=== PATIENT | female | born 1950 | race Caucasian/White ===

== ENCOUNTER 2016-06-09 09:30 | Emergency (ER) | payer MEDICARE ==
[~2016-06-09] VITALS: Ht 172.7 cm; Wt 147.4 kg
[~2016-06-09 09:30] MED LIST: ACIDOPHILUS100 MG PO; AMIO100T4 PO; ASCO-296 PO; ASPI-808 PO; ATOR40TA PO; BUSP7.5T5 PO; CALC667C10 PO; CARV12.53 PO; CEPH500C PO; DICY20TA33 PO; DILT120T3 PO; DULO60CA6 PO; FRS325T PO; HYDR-3062 PO; HYDR-3816 PO; INSASP10V SC; INSU100C4 SQ; INSU100V5 SQ; LEVO50TA6 PO; LISI-594 PO; OMEP20CA6 PO; ONDA8TAB9 PO; OXYC-272 PO; PNT40TEC PO; SENSIPAR PO; TORS100T4 PO; TR1C15 TOP; VIT1TABL59 PO; [UNRECOGNIZED DRUG - CODE] INJ
--- OUTSIDE RECORDS SUMMARY | 2016-06-09 09:34 | XMS REPORT | Continuity of Care Document ---
Author Author [facility] Organization [facility] Address Unknown Phone Unavailable Care Team Providers Care Cephalometric Technician Name Role Phone NO, LOCAL PHYSICIAN PCP Unavailable Insurance Providers Payer Name Policy Number Subscriber Name Relationship [employer] [id number] MelberJasvir 18 Self / Same As Patient [employer] Supp [id number] MelberJasvir 18 Self / Same As Patient Advance Directives Directive Response Recorded Date/Time Advance Directives No 10/22/14 7:11pm Problems Medical Problems Problem Onset Date Status Epistaxis Unknown Active Epistaxis Unknown Active Epistaxis Unknown Active Medications Medication Dose Route Sig Days/Qty Instructions Order Date Discontinued Date Status Ascorbic Acid 500 Mg PO THREE TIMES A DAY 08/16/13 Active Amiodarone HCl 200 Mg PO DAILY 08/16/13 Active Carvedilol (Coreg) 12.5 Mg PO TWICE A DAY 08/16/13 Active Lactobacillus Acidophilus 200 Mg PO THREE TIMES A DAY 08/16/13 Active Triamcinolone Acetonide (Kenalog 0.1% Cream) 0 TOP DAILY APPLY SPRARINGLY TO AFFECTED AREA(S) 08/16/13 Active Duloxetine HCl 60 Mg PO DAILY 08/16/13 Active Ferrous Sulfate 325 Mg PO THREE TIMES A DAY 08/16/13 Active Insulin Glargine,Hum.rec.anlog 15 Unit SQ BEDTIME 08/16/13 Active Insulin Aspart 0 SC BEFORE MEALS 08/16/13 Active Oxycodone Hcl/Acetaminophen 1 Tab PO EVERY 6 HOURS PRN PAIN 08/16/13 Active Pantoprazole Sodium 40 Mg PO DAILY 30 Qty 08/16/13 Active [Sensipar] 30 Mg PO DAILY 08/16/13 Active Lisinopril 5 Mg PO DAILY 08/16/13 Active Ondansetron HCl 8 Mg PO EVERY 8HRS PRN NAUSEA/VOMITING 08/16/13 Active Darbepoetin Mono 100 Mcg INJ WEEKLY 08/16/13 Active Insulin Detemir 10 U SQ DAILY 08/16/13 Active Hydrocodone Bit/Acetaminophen 1 Tab PO EVERY 6 HOURS PRN PAIN 14 Qty Active Social History Social History Problem Response Recorded Date/Time Alcohol Use Denies Use 10/22/2014 7:11pm Recreational Drug Use No 10/22/2014 7:11pm Recent Foreign Travel No 10/23/2014 11:01am Hospital Discharge Instructions No hospital discharge instructions. Plan of Care No plan of care. Functional Status No functional status results. Allergies, Adverse Reactions, Alerts Allergen Type Severity Reaction Status Last Updated No Known Drug Allergies Active 08/16/13 Immunizations Name Given Type Date of Pneumonia Vaccine 06/01/08 Historical Date of Influenza Vaccine 05/01/13 Historical Vital Signs Acute Vital Signs Vital Response Date/Time Temperature (Fahrenheit) 98.8 degrees F (97.6 - 99.5) Temperature (Calculated Celsius) 37.70131 degrees C (36.4 - 37.5) Temperature Source Temporal Pulse Rate (adult) 58 bpm (60 - 90) Respiratory Rate 46 bpm (12 - 24) O2 Sat by Pulse Oximetry 97 % (88 - 100) Blood Pressure 113/67 mm Hg Pain Pain Intensity 0 Height (Feet) 5 feet Height (Inches) 7 inches Height (Calculated Centimeters) 170.790844 cm Weight (Pounds) 250 pounds Weight (Calculated Kilograms) 113.731179 kilograms Calculated BMI 39.15 Results Laboratory Results Test Name Result Units Flags Reference Collection Date/Time Result Date/ Time Comments White Blood Count 8.7 10^3/uL 4.3-11.0 10/06/2014 10:24am 10/06/2014 10 :33am Red Blood Count 3.01 10^6/uL L 4.35-5.85 10/06/2014 10:10/06/2014 10 :33am Hemoglobin 9.4 G/DL L 11.5-16.0 10/06/2014 10:10/06/2014 10:33am Hematocrit 30 % L 35-52 10/06/2014 10:10/06/2014 10:33am Mean Corpuscular Volume 98 FL 80-99 10/06/2014 10:10/06/2014 10: 33am Mean Corpuscular Hemoglobin 31 PG 25-34 10/06/2014 10:10/06/2014 10:33am Mean Corpuscular Hemoglobin Concent 32 G/DL 32-36 10/06/2014 10: 10:33am Red Cell Distribution Width 16.3 % H 10.0-14.5 10/06/2014 10:2014 10:33am Platelet Count 88 10^3/uL L 130-400 10/06/2014 10:10/06/2014 10: 33am Mean Platelet Volume 11.5 FL H 7.4-10.4 10/06/2014 10:10/06/2014 10: 33am Neutrophils (%) (Auto) 79 % H 42-75 10/06/2014 10:10/06/2014 10: 33am Lymphocytes (%) (Auto) 13 % 12-44 10/06/2014 10:10/06/2014 10: 33am Monocytes (%) (Auto) 7 % 0-12 10/06/2014 10:10/06/2014 10:33am Eosinophils (%) (Auto) 1 % 0-10 10/06/2014 10:10/06/2014 10:33am Basophils (%) (Auto) 0 % 0-10 10/06/2014 10:10/06/2014 10:33am Neutrophils # (Auto) 6.9 X 10^3 1.8-7.8 10/06/2014 10:10/06/2014 10:33am Lymphocytes # (Auto) 1.1 X 10^3 1.0-4.0 10/06/2014 10:10/06/2014 10:33am Monocytes # (Auto) 0.6 X 10^3 0.0-1.0 10/06/2014 10:24am 10/06/2014 10: 33am Eosinophils # (Auto) 0.1 10^3/uL 0.0-0.3 10/06/2014 10:24am 10/06/2014 10:33am Basophils # (Auto) 0.0 10^3/uL 0.0-0.1 10/06/2014 10:24am 10/06/2014 10 :33am Sodium Level 137 MMOL/L 135-145 10/06/2014 10:24am 10/06/2014 10:59am Potassium Level 6.8 MMOL/L CH 3.6-5.0 10/06/2014 10:24am 10/06/2014 10: 59am RESULTS CALLED TO PAULETTE IN ED AT 1059. RESULTS READ BACK: YES. Chloride Level 94 MMOL/L L 98-107 10/06/2014 10:24am 10/06/2014 10:59am Carbon Dioxide Level 28 MMOL/L 21-32 10/06/2014 10:am 10/06/2014 10: 59am Blood Urea Nitrogen 73 MG/DL H 7-18 10/06/2014 10:24am 10/06/2014 10: 59am Creatinine 5.43 MG/DL H 0.60-1.30 10/06/2014 10:24am 10/06/2014 10:59am BUN/Creatinine Ratio 13 10/06/2014 10:24am 10/06/2014 10:59am Estimat Glomerular Filtration Rate 8 10/06/2014 10:24am 10/06/2014 10:59am GFR INTERPRETIVE DATA UNITS FOR ESTIMATED GFR (eGFR): mL/min/1.73 M2 REFERENCE RANGE FOR ESTIMATED GFR (eGFR) eGFR NORMAL eGFR >60 MODERATELY DECREASED eGFR 30-59 SEVERLY DECREASED eGFR 15-29 KIDNEY FAILURE <15 (OR DIALYSIS) Glucose Level 276 MG/DL H 70-105 10/06/2014 10:24am 10/06/2014 10:59am Glucometer 278 MG/DL H 70-110 10/06/2014 10:am 10/06/2014 10:34am Calcium Level 9.7 MG/DL 8.5-10.1 10/06/2014 10:24am 10/06/2014 10:59am Total Bilirubin 1.0 MG/DL 0.1-1.0 10/06/2014 10:24am 10/06/2014 10: 59am Alkaline Phosphatase 128 U/L 40-136 10/06/2014 10:24am 10/06/2014 10: 59am Aspartate Amino Transf (AST/SGOT) 17 U/L 5-34 10/06/2014 10:24am 2014 10:59am Alanine Aminotransferase (ALT/SGPT) 18 U/L 0-55 10/06/2014 10:24am 12/2014 10:59am Total Protein 6.9 G/DL 6.4-8.2 10/06/2014 10:24am 10/06/2014 10:59am Albumin 3.6 G/DL 3.2-4.5 10/06/2014 10:24am 10/06/2014 10:59am White Blood Count 7.3 10^3/uL 4.3-11.0 10/22/2014 7:00pm 10/22/2014 7: 18pm Red Blood Count 2.59 10^6/uL L 4.35-5.85 10/22/2014 7:00pm 10/22/2014 7: 18pm Hemoglobin 7.9 G/DL L 11.5-16.0 10/22/2014 7:00pm 10/22/2014 7:18pm Hematocrit 26 % L 35-52 10/22/2014 7:00pm 10/22/2014 7:18pm Mean Corpuscular Volume 100 FL H 80-99 10/22/2014 7:00pm 10/22/2014 7: 18pm Mean Corpuscular Hemoglobin 31 PG 25-34 10/22/2014 7:00pm 10/22/2014 7: 18pm Mean Corpuscular Hemoglobin Concent 31 G/DL L 32-36 10/22/2014 7:00pm 7:18pm Red Cell Distribution Width 15.7 % H 10.0-14.5 10/22/2014 7:00pm 2014 7:18pm Platelet Count 139 10^3/uL 130-400 10/22/2014 7:00pm 10/22/2014 7:18pm Mean Platelet Volume 12.2 FL H 7.4-10.4 10/22/2014 7:00pm 10/22/2014 7: 18pm Neutrophils (%) (Auto) 74 % 42-75 10/22/2014 7:00pm 10/22/2014 7:18pm Lymphocytes (%) (Auto) 16 % 12-44 10/22/2014 7:00pm 10/22/2014 7:18pm Monocytes (%) (Auto) 7 % 0-12 10/22/2014 7:00pm 10/22/2014 7:18pm Eosinophils (%) (Auto) 2 % 0-10 10/22/2014 7:00pm 10/22/2014 7:18pm Basophils (%) (Auto) 0 % 0-10 10/22/2014 7:00pm 10/22/2014 7:18pm Neutrophils # (Auto) 5.4 X 10^3 1.8-7.8 10/22/2014 7:00pm 10/22/2014 7: 18pm Lymphocytes # (Auto) 1.2 X 10^3 1.0-4.0 10/22/2014 7:00pm 10/22/2014 7: 18pm Monocytes # (Auto) 0.5 X 10^3 0.0-1.0 10/22/2014 7:00pm 10/22/2014 7: 18pm Eosinophils # (Auto) 0.2 10^3/uL 0.0-0.3 10/22/2014 7:00pm 10/22/2014 7 :18pm Basophils # (Auto) 0.0 10^3/uL 0.0-0.1 10/22/2014 7:00pm 10/22/2014 7: 18pm Sodium Level 138 MMOL/L 135-145 10/22/2014 7:00pm 10/22/2014 7:32pm Potassium Level 5.3 MMOL/L H 3.6-5.0 10/22/2014 7:00pm 10/22/2014 7:32pm SPECIMEN WAS NOT HEMOLYZED Chloride Level 96 MMOL/L L 98-107 10/22/2014 7:00pm 10/22/2014 7:32pm Carbon Dioxide Level 25 MMOL/L 21-32 10/22/2014 7:00pm 10/22/2014 7: 32pm Blood Urea Nitrogen 62 MG/DL H 7-18 10/22/2014 7:00pm 10/22/2014 7:32pm Creatinine 6.29 MG/DL H 0.60-1.30 10/22/2014 7:00pm 10/22/2014 7:32pm BUN/Creatinine Ratio 10 10/22/2014 7:00pm 10/22/2014 7:32pm Estimat Glomerular Filtration Rate 7 10/22/2014 7:00pm 10/22/2014 7 :32pm GFR INTERPRETIVE DATA UNITS FOR ESTIMATED GFR (eGFR): mL/min/1.73 M2 REFERENCE RANGE FOR ESTIMATED GFR (eGFR) eGFR NORMAL eGFR >60 MODERATELY DECREASED eGFR 30-59 SEVERLY DECREASED eGFR 15-29 KIDNEY FAILURE <15 (OR DIALYSIS) Glucose Level 214 MG/DL H 70-105 10/22/2014 7:00pm 10/22/2014 7:32pm Calcium Level 10.4 MG/DL H 8.5-10.1 10/22/2014 7:00pm 10/22/2014 7:32pm Total Bilirubin 0.6 MG/DL 0.1-1.0 10/22/2014 7:00pm 10/22/2014 7:32pm Alkaline Phosphatase 140 U/L H 40-136 10/22/2014 7:00pm 10/22/2014 7: 32pm Aspartate Amino Transf (AST/SGOT) 15 U/L 5-34 10/22/2014 7:00pm 2014 7:32pm Alanine Aminotransferase (ALT/SGPT) 15 U/L 0-55 10/22/2014 7:00pm 10/22 7:32pm Total Protein 7.6 G/DL 6.4-8.2 10/22/2014 7:00pm 10/22/2014 7:32pm Albumin 3.8 G/DL 3.2-4.5 10/22/2014 7:00pm 10/22/2014 7:32pm Procedures Procedure Status Date Provider(s) Tracing only of electrocardiogram completed 10/06/14 NABIL AGUIAR MD Encounters Encounter Location Date/Time Departed Emergency Room Via [facility] 10/23/14 11:03am Departed Emergency Room [facility] 10/22/14 6:52pm Departed Emergency Room [facility] 10/06/14 10:07am Recent Diagnosis
--- NOTE | 2016-06-09 12:16 | ED Upper Extremity ---
General Chief Complaint: Upper Extremity Stated Complaint: HAND INJ Nursing Triage Note: Fell yesterday, injured Left hand and hard to put pressure on right knee, pt also hit face on porch also Nursing Sepsis Screen: No Definite Risk Source: patient History of Present Illness Time seen by provider: 12:11 Initial Comments The patient is a 66-year-old white female who presents with complaints of left wrist and right knee pain. She fell from ground level yesterday at home. She reported that she struck her face and right knee. She has been able to walk on the right knee although with pain. She has developed a prominent periorbital hematoma on the left. She states her left hand is painful when dorsiflexed and also hurts to chief crna. Onset: yesterday Pain/Injury Location: left wrist Method of Injury: fell Allergies and Home Medications Allergies Coded Allergies: metronidazole (Verified Allergy, Severe, 01/23/15) thallium-201 (Verified Allergy, Severe, 01/23/15) Home Medications Amiodarone HCl 100 Mg Tablet 200 MG PO DAILY (Reported) Ascorbic Acid 500 Mg Tab.chew 500 MG PO TID (Reported) Aspirin 325 Mg Tablet 325 MG PO DAILY (Reported) Atorvastatin Calcium 40 Mg Tablet 40 MG PO HS (Reported) Buspirone HCl 7.5 Mg Tablet 7.5 MG PO BID (Reported) Calcium Acetate 667 Mg Capsule 2,668 MG PO TID (Reported) Carvedilol 12.5 Mg Tablet 12.5 MG PO BID (Reported) Cephalexin 500 Mg Capsule #21 500 MG PO Q8H Prescribed by: FREDDIE HAY on 01/25/15 1046 Dicyclomine HCl 20 Mg Tablet 20 MG PO BID (Reported) Diltiazem HCl 120 Mg Tablet 120 MG PO DAILY (Reported) Duloxetine Hcl 60 Mg Capsule.dr 60 MG PO DAILY (Reported) Ferrous Sulfate 325 Mg Tab 325 MG PO TID (Reported) Hydrocodone/Acetaminophen 1 Each Tablet #30 1 EACH PO Q4H PRN PRN PAIN Prescribed by: FREDDIE HAY on 01/25/15 1048 Insulin Aspart 10 Unit/0.1 Ml Susp 2-14 UNITS SC QID (Reported) Insulin Detemir 100 U/Ml Vial 16 U SQ BID (Reported) Lactobacillus Acidophilus 100 Mg Capsule 200 MG PO TID (Reported) Levothyroxine Sodium 50 Mcg Tablet 50 MCG PO DAILY (Reported) Lisinopril 5 Mg Tablet 10 MG PO DAILY (Reported) Omeprazole 20 Mg Capsule.dr 20 MG PO BID (Reported) Torsemide 100 Mg Tablet 100 MG PO UD (Reported) Vit B Cmplx 3/FA/Vit C/Biotin 1 Each Tablet 1 EACH PO DAILY (Reported) Constitutional: see HPI EENTM: no symptoms reported Respiratory: no symptoms reported Cardiovascular: no symptoms reported Gastrointestinal: no symptoms reported Musculoskeletal: see HPI joint pain Skin: see HPI Psychiatric/Neurological: No Symptoms Reported Past Fzybfri-Cquajf-Awtefr Hx Patient Social History Alcohol Use: Rarely Uses Recreational Drug Use: No Smoking Status: Never a Smoker Recent Foreign Travel: No Contact w/Someone Who Travel: No Recent Infectious Disease Expo: No Recent Hopitalizations: Yes Physical Abuse Screen: No Sexual Abuse: No Immunizations Up To Date Date of Pneumonia Vaccine: Jul 14, 2007 Date of Influenza Vaccine: Feb 16, 2013 Seasonal Allergies Seasonal Allergies: No Surgeries HX Surgeries: Yes (MITRAL VALVE REPLACEMENT, FASCIOTOMY, CATARACTS) Surgeries: Appendectomy Respiratory Hx Respiratory Disorders: Yes (WEARS O2 4L NC) Respiratory Disorders: Sleep Apnea, COPD Cardiovascular Hx Cardiac Disorders: Yes (STENTS) Cardiac Disorders: Heart Attack, Hypertension Neurological Hx Neurological Disorders: Yes ([place]) Neurological Disorders: Stroke Reproductive System Hx Reproductive Disorders: No Sexually Transmitted Disease: No HIV/AIDS: No Female Reproductive Disorders: Denies Genitourinary Hx Genitourinary Disorders: Yes (THU-THU-THU, ) Genitourinary Disorders: Renal Failure, Dialysis Gastrointestinal Hx Gastrointestinal Disorders: Yes (TAKES PRILOSEC-GASTRITIS) Gastrointestinal Disorders: Gastroesophageal Reflux, Gastrointestinal Bleed, C- Diff Musculoskeletal Hx Musculoskeletal Disorders: Yes (SMALL BOUT WITH ARTHRISITS IN HAND) Musculoskeletal Disorders: Arthritis, Gout Endocrine Hx Endocrine Disorders: Yes Endocrine Disorders: Parathyroid Disease, Diabetes, Insulin dep HEENT HX ENT Disorders: Yes (CATARACTS REMOVED, LEGALLY BLIND RIGHT EYE) HEENT Disorders: Cataract, Tinnitis Loss of Vision: Bilateral Hearing Impairment: Denies Cancer Hx Cancer: No Psychosocial Hx Psychiatric Problems: Yes (TAKES MEDS) Behavioral Health Disorders: Depression Integumentary HX Skin/Integumentary Disorder: Yes (DRY SKIN FROM DIALYSIS) Blood Transfusions Hx Blood Disorders: Yes (BLOOD CLOTS) Adverse Reaction to a Blood Tr: No (RECEIVED 2 UNITS AUGUST 04) Family Medical History Significant Family History: No Pertinent Family Hx Physical Exam Vital Signs Vital Sign - Last 12Hours 06/09/16 09:43 Pulse 66 Resp 18 B/P 127/47 O2 Delivery Room Air Capillary Refill : Less Than 3 Seconds General Appearance: other (the patient is alert and pleasant) HEENT: other Neck: non-tender full range of motion Cardiovascular: normal peripheral pulses regular rate, rhythm no edema no gallop no JVD no murmur Respiratory: chest non-tender lungs clear normal breath sounds no respiratory distress no accessory muscle use Wrist: Yes normal inspection, Yes swelling (Limited chief crna because of pain. Passive and active dorsiflexion painful as well. Cosleep\\\) Neurologic/Psychiatric: veneer stapler II-XII nml as tested no motor/sensory deficits alert normal mood/affect oriented x 3 Progress/Results/Core Measures Results/Orders My Orders Orders-NABIL AGUIAR MD Ct Head/Maxillofacial Wo (06/09/16 12:01) Wrist, Left, 3 Views Or More (06/09/16 12:01) Vital Signs/I&O Vital Sign - Last 12Hours 06/09/16 09:43 Pulse 66 Resp 18 B/P 127/47 O2 Delivery Room Air Blood Pressure Mean: 73 Departure Impression Impression: Primary Impression: Periorbital ecchymosis of left eye Additional Impression: left wrist sprain Disposition: 01 HOME, SELF-CARE Condition: Stable/Unchanged Departure-Patient Inst. Referrals: VIDHI BOOTH MD (PCP) Primary Care Physician Patient Instructions: Common Wrist Injuries (DC) Add. Discharge Instructions: All discharge instructions reviewed with patient and/or family. Voiced understanding. Expect the color about the left eye to take 7-10 days to resolve. After 48 hours you may use heat on the left wrist. NABIL AGUIAR MD Jun 09, 2016 12:15
--- NOTE | 2016-06-09 12:34 | Diagnostic Imaging Report ---
INDICATION: Fell yesterday with left hand injury. FINDINGS: Three views of the left wrist demonstrate degenerative changes of the first carpal/metacarpal joint. A large osteophyte is seen off the base of the fifth metacarpal. No fractures are seen. Vascular calcifications are present. IMPRESSION: There are no acute findings. Dictated by: Dictated on workstation # [id number]
--- NOTE | 2016-06-09 12:54 | Diagnostic Imaging Report ---
PROCEDURE: CT head and maxillofacial without contrast. TECHNIQUE: Multiple contiguous axial images were obtained through the head and facial bones without the use of intravenous contrast. INDICATION: Fall. FINDINGS: CT head: There is an area of hypodensity seen in the right parietal region probably related to an old infarct. There is no intracranial hemorrhage, edema or mass effect seen. No hydrocephalus. No extra-axial fluid collection is seen. The calvarium appears grossly unremarkable. Maxillofacial CT scan: The zygomatic arches appear intact. The maxillary sinuses demonstrate minimal mucosal thickening. There is patent ostiomeatal complex. Minimal mucosal thickening in the ethmoid air cells seen. There is clear frontal sinuses. The mastoid air cells and middle ear cavities appear clear. The orbital king are intact. The nasal bones demonstrate no fractures. There is preseptal superficial left periorbital mild contusion. The orbital contents appear symmetric with no retrobulbar hematoma. IMPRESSION: CT head: No intracranial hemorrhage. Hypodensity in the right parietal region is probably related to an old small infarct. CT maxillofacial: No fracture seen. Dictated by: Dictated on workstation # [id number]
[2016-06-09 13:09] VITALS: BP 125/48
== END 2016-06-09 13:09 | disposition home or self-care (01) ==
LOC: EDUNIT# 09:30 → ER 09:31
DX: S63.502A Unspecified sprain of left wrist, initial encounter (principal); S00.12XA Contusion of left eyelid and periocular area, initial encounter; J44.9 Chronic obstructive pulmonary disease, unspecified; I12.0 Hypertensive chronic kidney disease with stage 5 chronic kidney disease or end stage renal disease; N18.6 End stage renal disease; E11.9 Type 2 diabetes mellitus without complications; Z79.82 Long term (current) use of aspirin; Z79.899 Other long term (current) drug therapy; Z79.4 Long term (current) use of insulin; Z99.2 Dependence on renal dialysis; W01.0XXA Fall on same level from slipping, tripping and stumbling without subsequent striking against object, initial encounter; Y99.8 Other external cause status
CPT/HCPCS: 70450; 70486; 73110

== ENCOUNTER 2016-11-03 20:45 | Outpatient (CLI) | payer MEDICARE | END 2016-11-04 07:42 | disposition home or self-care (01) | LOC: SLEEP 20:45 | PROVIDERS: ATTEND Otolaryngology Otolaryngology/Facial Plastic Surgery | DX: G47.33 Obstructive sleep apnea (adult) (pediatric) (principal) | CPT/HCPCS: 95811 ==

== ENCOUNTER → 2017-07-24 | Outpatient (CLI) | payer MEDICARE | LOC: WOUNDCARE 08:13 | PROVIDERS: ATTEND Surgery | DX: L97.212 Non-pressure chronic ulcer of right calf with fat layer exposed (principal); I87.331 Chronic venous hypertension (idiopathic) with ulcer and inflammation of right lower extremity; I87.322 Chronic venous hypertension (idiopathic) with inflammation of left lower extremity; E11.622 Type 2 diabetes mellitus with other skin ulcer; I70.232 Atherosclerosis of native arteries of right leg with ulceration of calf | CPT/HCPCS: 11042 ==

== ENCOUNTER → 2017-07-31 | Outpatient (CLI) | payer MEDICARE | LOC: WOUNDCARE 08:12 | PROVIDERS: ATTEND Surgery | DX: L97.212 Non-pressure chronic ulcer of right calf with fat layer exposed (principal); I87.331 Chronic venous hypertension (idiopathic) with ulcer and inflammation of right lower extremity; I87.322 Chronic venous hypertension (idiopathic) with inflammation of left lower extremity; E11.622 Type 2 diabetes mellitus with other skin ulcer; I70.232 Atherosclerosis of native arteries of right leg with ulceration of calf ==

== ENCOUNTER → 2017-08-06 | Outpatient (CLI) | payer MEDICARE | LOC: WOUNDCARE 14:58 | PROVIDERS: ATTEND Nurse Practitioner | DX: L97.212 Non-pressure chronic ulcer of right calf with fat layer exposed (principal); I87.331 Chronic venous hypertension (idiopathic) with ulcer and inflammation of right lower extremity; I87.322 Chronic venous hypertension (idiopathic) with inflammation of left lower extremity; E11.622 Type 2 diabetes mellitus with other skin ulcer; I70.232 Atherosclerosis of native arteries of right leg with ulceration of calf | CPT/HCPCS: 11042 ==

== ENCOUNTER → 2017-08-14 | Outpatient (CLI) | payer MEDICARE | LOC: WOUNDCARE 08:11 | PROVIDERS: ATTEND Surgery | DX: L97.212 Non-pressure chronic ulcer of right calf with fat layer exposed (principal); I87.331 Chronic venous hypertension (idiopathic) with ulcer and inflammation of right lower extremity; I87.322 Chronic venous hypertension (idiopathic) with inflammation of left lower extremity; E11.622 Type 2 diabetes mellitus with other skin ulcer; I70.232 Atherosclerosis of native arteries of right leg with ulceration of calf | CPT/HCPCS: 11042 ==

== ENCOUNTER → 2017-08-21 | Outpatient (CLI) | payer MEDICARE | LOC: WOUNDCARE 08:07 | PROVIDERS: ATTEND Surgery | DX: L97.212 Non-pressure chronic ulcer of right calf with fat layer exposed (principal); I87.331 Chronic venous hypertension (idiopathic) with ulcer and inflammation of right lower extremity; I87.322 Chronic venous hypertension (idiopathic) with inflammation of left lower extremity; E11.622 Type 2 diabetes mellitus with other skin ulcer; I70.232 Atherosclerosis of native arteries of right leg with ulceration of calf | CPT/HCPCS: 11042; 87070; 87075; 87077; 87186; 87205 ==

== ENCOUNTER → 2017-08-25 | Outpatient (CLI) | payer MEDICARE ==
--- NOTE | 2017-08-25 13:31 | Diagnostic Imaging Report ---
PROCEDURE: US Bilateral lower extremity arterial. TECHNIQUE: Multiple real-time grayscale images are obtained through both lower extremity arterial systems with color Doppler imaging and color Doppler spectral analysis. 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 FINDINGS: There are monophasic waveforms throughout both lower extremity arterial systems from the common femoral arteries to the ankles. There is a high-grade stenosis with elevated velocities in the right common femoral artery reaching 496 cm/s. No other definite velocity elevation is seen. Note is made that the posterior tibial artery on the right at the ankle is not visualized and likely occluded. No other occlusions are detected. IMPRESSION: Diffuse bilateral monophasic waveforms, perhaps owing to more proximal disease. There is a high-grade stenosis of the right common femoral artery. There is an apparent occlusion of the right posterior tibial artery at the ankle. No other occlusions are detected. Dictated by: Dictated on workstation # [id number]
== END ==
LOC: RAD 09:08
PROVIDERS: ATTEND Surgery
DX: L97.212 Non-pressure chronic ulcer of right calf with fat layer exposed (principal); I87.311 Chronic venous hypertension (idiopathic) with ulcer of right lower extremity; I87.322 Chronic venous hypertension (idiopathic) with inflammation of left lower extremity; E11.622 Type 2 diabetes mellitus with other skin ulcer; I70.232 Atherosclerosis of native arteries of right leg with ulceration of calf
CPT/HCPCS: 93925

== ENCOUNTER → 2017-08-26 | Outpatient (CLI) | payer MEDICARE | LOC: WOUNDCARE 09:28 | PROVIDERS: ATTEND Surgery | DX: E11.622 Type 2 diabetes mellitus with other skin ulcer (principal); L97.212 Non-pressure chronic ulcer of right calf with fat layer exposed; I87.331 Chronic venous hypertension (idiopathic) with ulcer and inflammation of right lower extremity; I87.322 Chronic venous hypertension (idiopathic) with inflammation of left lower extremity; I70.232 Atherosclerosis of native arteries of right leg with ulceration of calf | CPT/HCPCS: 11042 ==

== ENCOUNTER → 2017-09-04 | Outpatient (CLI) | payer MEDICARE | LOC: WOUNDCARE 08:13 | PROVIDERS: ATTEND Surgery | DX: L97.212 Non-pressure chronic ulcer of right calf with fat layer exposed (principal); I87.331 Chronic venous hypertension (idiopathic) with ulcer and inflammation of right lower extremity; I87.322 Chronic venous hypertension (idiopathic) with inflammation of left lower extremity; E11.622 Type 2 diabetes mellitus with other skin ulcer; I70.232 Atherosclerosis of native arteries of right leg with ulceration of calf | CPT/HCPCS: 11042 ==

== ENCOUNTER → 2017-09-11 | Outpatient (CLI) | payer MEDICARE | LOC: WOUNDCARE 08:12 | PROVIDERS: ATTEND Surgery | DX: L97.212 Non-pressure chronic ulcer of right calf with fat layer exposed (principal); I87.331 Chronic venous hypertension (idiopathic) with ulcer and inflammation of right lower extremity; I87.322 Chronic venous hypertension (idiopathic) with inflammation of left lower extremity; E11.622 Type 2 diabetes mellitus with other skin ulcer; I70.232 Atherosclerosis of native arteries of right leg with ulceration of calf | CPT/HCPCS: 11042 ==

== ENCOUNTER → 2017-09-25 | Outpatient (CLI) | payer MEDICARE | LOC: WOUNDCARE 08:20 | PROVIDERS: ATTEND Nurse Practitioner | DX: E11.622 Type 2 diabetes mellitus with other skin ulcer (principal); L97.212 Non-pressure chronic ulcer of right calf with fat layer exposed; I87.331 Chronic venous hypertension (idiopathic) with ulcer and inflammation of right lower extremity; I87.322 Chronic venous hypertension (idiopathic) with inflammation of left lower extremity; I70.232 Atherosclerosis of native arteries of right leg with ulceration of calf | CPT/HCPCS: 11042 ==

== ENCOUNTER → 2017-10-02 | Outpatient (CLI) | payer MEDICARE | LOC: WOUNDCARE 08:13 | PROVIDERS: ATTEND Surgery | DX: E11.622 Type 2 diabetes mellitus with other skin ulcer (principal); L97.212 Non-pressure chronic ulcer of right calf with fat layer exposed; I87.331 Chronic venous hypertension (idiopathic) with ulcer and inflammation of right lower extremity; I87.322 Chronic venous hypertension (idiopathic) with inflammation of left lower extremity; I70.232 Atherosclerosis of native arteries of right leg with ulceration of calf | CPT/HCPCS: 11042 ==

== ENCOUNTER → 2018-02-10 | Outpatient (CLI) | payer MEDICARE | LOC: WOUNDCARE 08:06 | PROVIDERS: ATTEND Surgery | DX: E11.621 Type 2 diabetes mellitus with foot ulcer (principal); I70.235 Atherosclerosis of native arteries of right leg with ulceration of other part of foot; L97.511 Non-pressure chronic ulcer of other part of right foot limited to breakdown of skin; I87.323 Chronic venous hypertension (idiopathic) with inflammation of bilateral lower extremity; E11.42 Type 2 diabetes mellitus with diabetic polyneuropathy; I50.9 Heart failure, unspecified; E66.01 Morbid (severe) obesity due to excess calories; Z68.43 Body mass index [BMI] 50.0-59.9, adult | CPT/HCPCS: 99214 ==

== ENCOUNTER → 2018-02-15 | Outpatient (CLI) | payer MEDICARE | LOC: WOUNDCARE 08:10 | PROVIDERS: ATTEND Surgery | DX: E11.621 Type 2 diabetes mellitus with foot ulcer (principal); I70.235 Atherosclerosis of native arteries of right leg with ulceration of other part of foot; I87.323 Chronic venous hypertension (idiopathic) with inflammation of bilateral lower extremity; L97.511 Non-pressure chronic ulcer of other part of right foot limited to breakdown of skin; E11.42 Type 2 diabetes mellitus with diabetic polyneuropathy; I50.9 Heart failure, unspecified; N18.6 End stage renal disease; E66.01 Morbid (severe) obesity due to excess calories; Z68.43 Body mass index [BMI] 50.0-59.9, adult | CPT/HCPCS: 99213 ==

== ENCOUNTER → 2018-02-22 | Outpatient (CLI) | payer MEDICARE | LOC: WOUNDCARE 09:16 | PROVIDERS: ATTEND Surgery | DX: E11.621 Type 2 diabetes mellitus with foot ulcer (principal); I70.235 Atherosclerosis of native arteries of right leg with ulceration of other part of foot; L97.512 Non-pressure chronic ulcer of other part of right foot with fat layer exposed; I87.323 Chronic venous hypertension (idiopathic) with inflammation of bilateral lower extremity; E11.42 Type 2 diabetes mellitus with diabetic polyneuropathy; I50.9 Heart failure, unspecified; N18.6 End stage renal disease; E66.01 Morbid (severe) obesity due to excess calories; Z68.43 Body mass index [BMI] 50.0-59.9, adult | CPT/HCPCS: 11042 ==

== ENCOUNTER → 2018-03-01 | Outpatient (CLI) | payer MEDICARE | LOC: WOUNDCARE 09:14 | PROVIDERS: ATTEND Surgery | DX: E11.621 Type 2 diabetes mellitus with foot ulcer (principal); L97.512 Non-pressure chronic ulcer of other part of right foot with fat layer exposed; E11.42 Type 2 diabetes mellitus with diabetic polyneuropathy; I50.9 Heart failure, unspecified; I70.235 Atherosclerosis of native arteries of right leg with ulceration of other part of foot; I87.323 Chronic venous hypertension (idiopathic) with inflammation of bilateral lower extremity; E66.01 Morbid (severe) obesity due to excess calories; N18.6 End stage renal disease; T23.222A Burn of second degree of single left finger (nail) except thumb, initial encounter | CPT/HCPCS: 11042; 87070; 87075; 87077; 87186; 87205 ==

== ENCOUNTER → 2018-03-08 | Outpatient (CLI) | payer MEDICARE | LOC: WOUNDCARE 08:51 | PROVIDERS: ATTEND Surgery | DX: E11.621 Type 2 diabetes mellitus with foot ulcer (principal); I70.235 Atherosclerosis of native arteries of right leg with ulceration of other part of foot; L97.512 Non-pressure chronic ulcer of other part of right foot with fat layer exposed; I87.323 Chronic venous hypertension (idiopathic) with inflammation of bilateral lower extremity; E11.42 Type 2 diabetes mellitus with diabetic polyneuropathy; T23.322A Burn of third degree of single left finger (nail) except thumb, initial encounter; I50.9 Heart failure, unspecified; N18.6 End stage renal disease; E66.01 Morbid (severe) obesity due to excess calories; Z68.43 Body mass index [BMI] 50.0-59.9, adult | CPT/HCPCS: 11042 ==

== ENCOUNTER → 2018-03-15 | Outpatient (CLI) | payer MEDICARE | LOC: WOUNDCARE 08:54 | PROVIDERS: ATTEND Surgery | DX: E11.621 Type 2 diabetes mellitus with foot ulcer (principal); I70.235 Atherosclerosis of native arteries of right leg with ulceration of other part of foot; L97.512 Non-pressure chronic ulcer of other part of right foot with fat layer exposed; I87.323 Chronic venous hypertension (idiopathic) with inflammation of bilateral lower extremity; E11.42 Type 2 diabetes mellitus with diabetic polyneuropathy; T23.322A Burn of third degree of single left finger (nail) except thumb, initial encounter; I50.9 Heart failure, unspecified; N18.6 End stage renal disease; E66.01 Morbid (severe) obesity due to excess calories; Z68.43 Body mass index [BMI] 50.0-59.9, adult | CPT/HCPCS: 99213 ==

== ENCOUNTER → 2018-03-22 | Outpatient (CLI) | payer MEDICARE | LOC: WOUNDCARE 08:56 | PROVIDERS: ATTEND Surgery | DX: T23.322A Burn of third degree of single left finger (nail) except thumb, initial encounter (principal); I87.323 Chronic venous hypertension (idiopathic) with inflammation of bilateral lower extremity; I70.235 Atherosclerosis of native arteries of right leg with ulceration of other part of foot; E11.42 Type 2 diabetes mellitus with diabetic polyneuropathy; I50.9 Heart failure, unspecified; N18.6 End stage renal disease; E66.01 Morbid (severe) obesity due to excess calories; Z68.43 Body mass index [BMI] 50.0-59.9, adult | CPT/HCPCS: 99213 ==

== ENCOUNTER → 2019-03-08 | Outpatient (CLI) | payer MEDICARE | LOC: WOUNDCARE 12:28 | PROVIDERS: ATTEND Surgery | DX: L97.212 Non-pressure chronic ulcer of right calf with fat layer exposed (principal); I87.331 Chronic venous hypertension (idiopathic) with ulcer and inflammation of right lower extremity; I70.232 Atherosclerosis of native arteries of right leg with ulceration of calf; N18.6 End stage renal disease; I50.9 Heart failure, unspecified; E66.01 Morbid (severe) obesity due to excess calories; E11.622 Type 2 diabetes mellitus with other skin ulcer; E11.22 Type 2 diabetes mellitus with diabetic chronic kidney disease | CPT/HCPCS: 99213 ==

== ENCOUNTER 2019-03-14 05:50 | Emergency (ER) | payer MEDICARE ==
[~2019-03-14] VITALS: Ht 172.7 cm; Wt 142.0 kg
[2019-03-14] MEDS ORDERED: PHENYLEPHRINE 0.5% NASAL SPR (NEO-SYNEPHRINE) REG ONE (06:15)
--- NOTE | 2019-03-14 06:21 | ED EENT ---
History of Present Illness General Stated Complaint: NOSE BLEED Source: patient Exam Limitations: no limitations History of Present Illness Date Seen by Provider: Mar 14, 2019 Time Seen by Provider: 05:57 Initial Comments Here with report of nosebleed this morning. This is been going on for at least an hour so intermittently. She was able to get it to stop but feels a clot in her throat and that concerned her. She does have history of frequent nosebleeds and reports a hole in her septum. She's had to have this cauterized several times. Last time was about 6 weeks ago. She is to follow-up with Dr. White on Thursday of this week. She does wear O2 via nasal cannula chronically at 4 L. She is on dialysis for end-stage renal disease. She is not on blood thinners currently and previously was on aspirin as well but is not on that now. Bleeding is currently stopped. Timing/Duration: abrupt Severity: moderate Location: nose Prearrival Treatment: squeezing nostrils Associated Symptoms: No fever, No sore throat Allergies and Home Medications Allergies Coded Allergies: metronidazole (Verified Allergy, Severe, 01/23/15) [id number] (Verified Allergy, Severe, 01/23/15) Home Medications Amiodarone HCl 100 Mg Tablet, 200 MG PO DAILY, (Reported) Ascorbic Acid 500 Mg Tab.chew, 500 MG PO TID, (Reported) Aspirin 325 Mg Tablet, 325 MG PO DAILY, (Reported) Atorvastatin Calcium 40 Mg Tablet, 40 MG PO HS, (Reported) Buspirone HCl 7.5 Mg Tablet, 7.5 MG PO BID, (Reported) Calcium Acetate 667 Mg Capsule, 2,668 MG PO TID, (Reported) Carvedilol 12.5 Mg Tablet, 12.5 MG PO BID, (Reported) Cephalexin 500 Mg Capsule, 500 MG PO Q8H Prescribed by: FREDDIE HAY on 01/25/15 1046 Dicyclomine HCl 20 Mg Tablet, 20 MG PO BID, (Reported) Diltiazem HCl 120 Mg Tablet, 120 MG PO DAILY, (Reported) Duloxetine Hcl 60 Mg Capsule.dr, 60 MG PO DAILY, (Reported) Ferrous Sulfate 325 Mg Tab, 325 MG PO TID, (Reported) Hydrocodone/Acetaminophen 1 Each Tablet, 1 EACH PO Q4H PRN for PAIN Prescribed by: FREDDIE HAY on 01/25/15 1048 Insulin Aspart 10 Unit/0.1 Ml Susp, 2-14 UNITS SC QID, (Reported) Insulin Detemir 100 U/Ml Vial, 16 U SQ BID, (Reported) Lactobacillus Acidophilus 100 Mg Capsule, 200 MG PO TID, (Reported) Levothyroxine Sodium 50 Mcg Tablet, 50 MCG PO DAILY, (Reported) Lisinopril 5 Mg Tablet, 10 MG PO DAILY, (Reported) Omeprazole 20 Mg Capsule.dr, 20 MG PO BID, (Reported) Torsemide 100 Mg Tablet, 100 MG PO UD, (Reported) Vit B Cmplx 3/FA/Vit C/Biotin 1 Each Tablet, 1 EACH PO DAILY, (Reported) Patient Home Medication List Home Medication List Reviewed: Yes Review of Systems Review of Systems Constitutional: see HPI; No chills, No fever Nose: see HPI, clots, epistaxis Respiratory: No cough; short of breath Cardiovascular: no symptoms reported Past Ghpsvti-Gozhlo-Hifxtb Hx Past Med/Social Hx: Reviewed Nursing Past Med/Soc Hx Patient Social History Alcohol Use: Denies Use Recreational Drug Use: No Smoking Status: Never a Smoker Recent Hopitalizations: Yes Immunizations Up To Date Date of Pneumonia Vaccine: Jul 14, 2007 Date of Influenza Vaccine: Feb 16, 2013 Seasonal Allergies Seasonal Allergies: No Past Medical History Surgeries: Yes Appendectomy Respiratory: Yes Sleep Apnea, COPD Cardiac: Yes Heart Attack, Hypertension Neurological: Yes Stroke Reproductive Disorders: No Female Reproductive Disorders: Denies Sexually Transmitted Disease: No HIV/AIDS: No Genitourinary: Yes Renal Failure, Dialysis Gastrointestinal: Yes Gastroesophageal Reflux, Gastrointestinal Bleed, C-Diff Musculoskeletal: Yes Arthritis, Gout Endocrine: Yes Parathyroid Disease, Diabetes, Insulin dep HEENT: Yes Cataract, Tinnitis Loss of Vision: Bilateral Hearing Impairment: Denies Cancer: No Psychosocial: Yes Depression Adverse Reaction/Blood Tranf: No (RECEIVED 2 UNITS AUGUST 04) Family Medical History Reviewed Nursing Family Hx No Pertinent Family Hx Physical Exam Vital Signs Vital Signs - First Documented Height, Weight, BMI Height: 5'8" Weight: 325lbs. oz. [id number]; BMI Method:Stated General Appearance: WD/WN, no apparent distress Nose: other (old blood bilateral but no active bleeding) Mouth/Throat: other (note no active bleeding. There is clot tail noted in the upper posterior pharynx) Neck: full range of motion, supple Cardiovascular: regular rate, rhythm, no murmur Respiratory: no respiratory distress, crackles (oral) Gastrointestinal: non tender, soft Neurologic/Psychiatric: alert, oriented x 3 Progress/Results/Core Measures Results/Orders My Orders Orders - SHAWN FRITZ MD Phenylephrine 0.25% Nasal Spra (Pieter-Syne (03/14/19 06:45) Phenylephrine 0.25% Nasal Spra (Pieter-Syne (03/14/19 06:44) Medications Given in ED Current Medications Medications Dose Ordered Sig/Maryana Route Start Time Stop Time Status Last Admin Dose Admin Phenylephrine HCl 1 OR 2 SPRAYS TO NOSTRIL Q4H PRN NS 03/14/19 06:45 03/14/19 06:51 15 ML Vital Signs/I&O 03/14/19 05:50 B/P (MAP) Progress Progress Note : Progress Note Seen and evaluated. Active bleeding seems to have stopped currently but she does have clot noted. We will have to try to capture that. We will initiate Pieter- Synephrine bilateral first and then attempted to get clot with suction after. Monitor patient. 0830: I was able to successfully suction clots in the posterior pharynx. Patient feels much better. No active bleeding. She is due for dialysis today and the daughter is here and will take her there. Discharged home with return precautions. Patient verbalize understanding instructions and agreement with plan. She does have appointment with Dr. White tomorrow at 3 PM. I will send a copy of the chart to him. Departure Impression Primary Impression: Epistaxis Disposition: 01 HOME, SELF-CARE Condition: Improved Departure-Patient Inst. Decision time for Depature: 08:41 Referrals: CLAYTON HARRISON MD (PCP/Family) Primary Care Physician Patient Instructions: Nosebleeds (DC) Add. Discharge Instructions: Do not blow your nose. Follow-up with Dr. White tomorrow as scheduled. You may use the Pieter-Synephrine spray 2 sprays every 4-6 hours as needed if you are getting some bleeding. Otherwise use the nasal saline spray that you have. He may benefit from using the oxygen in your mouth instead of your nose for the next 24 hours as tolerated. You need to go to dialysis today. Return for persistent bleeding, vomiting, weakness, breathing problems or other concerns as needed. Copy Copies To 1: SWATI WHITE MD, TIMOTHY D MD Mar 14, 2019 06:21
[2019-03-14] MEDS ORDERED: PHENYLEPHRINE 0.25% NASAL SPR (NEO-SYNEPHRINE) 15 ML NS ONE (06:44)
[2019-03-14] MEDS ORDERED: PHENYLEPHRINE 0.25% NASAL SPR (NEO-SYNEPHRINE) 15 ML NS PRN (06:45)
[2019-03-14 08:57] VITALS: BP 150/95
== END 2019-03-14 08:57 | disposition home or self-care (01) ==
LOC: EDUNIT# 06:00 → ER 06:01
DX: R04.0 Epistaxis (principal); E11.22 Type 2 diabetes mellitus with diabetic chronic kidney disease; I12.0 Hypertensive chronic kidney disease with stage 5 chronic kidney disease or end stage renal disease; N18.6 End stage renal disease; J44.9 Chronic obstructive pulmonary disease, unspecified; I25.2 Old myocardial infarction; K21.9 Gastro-esophageal reflux disease without esophagitis; M10.9 Gout, unspecified; F32.9 Major depressive disorder, single episode, unspecified; Z99.2 Dependence on renal dialysis; Z86.73 Personal history of transient ischemic attack (TIA), and cerebral infarction without residual deficits; Z99.81 Dependence on supplemental oxygen; Z88.8 Allergy status to other drugs, medicaments and biological substances; Z79.82 Long term (current) use of aspirin; Z79.4 Long term (current) use of insulin; Z90.49 Acquired absence of other specified parts of digestive tract
CPT/HCPCS: 99281

== ENCOUNTER → 2019-03-15 | Outpatient (CLI) | payer MEDICARE | LOC: WOUNDCARE 12:31 | PROVIDERS: ATTEND Surgery | DX: E11.52 Type 2 diabetes mellitus with diabetic peripheral angiopathy with gangrene (principal); E11.22 Type 2 diabetes mellitus with diabetic chronic kidney disease; L97.212 Non-pressure chronic ulcer of right calf with fat layer exposed; I87.331 Chronic venous hypertension (idiopathic) with ulcer and inflammation of right lower extremity; N18.6 End stage renal disease; I50.9 Heart failure, unspecified; E66.01 Morbid (severe) obesity due to excess calories; I70.261 Atherosclerosis of native arteries of extremities with gangrene, right leg | CPT/HCPCS: 11042 ==

== ENCOUNTER → 2019-03-22 | Outpatient (CLI) | payer MEDICARE | LOC: WOUNDCARE 15:08 | PROVIDERS: ATTEND Surgery | DX: L97.212 Non-pressure chronic ulcer of right calf with fat layer exposed (principal); I87.331 Chronic venous hypertension (idiopathic) with ulcer and inflammation of right lower extremity; E11.22 Type 2 diabetes mellitus with diabetic chronic kidney disease; N18.6 End stage renal disease; I50.9 Heart failure, unspecified; E66.01 Morbid (severe) obesity due to excess calories; I70.232 Atherosclerosis of native arteries of right leg with ulceration of calf; E11.52 Type 2 diabetes mellitus with diabetic peripheral angiopathy with gangrene | CPT/HCPCS: 11042 ==

== ENCOUNTER → 2019-03-29 | Outpatient (CLI) | payer MEDICARE | LOC: WOUNDCARE 15:38 | PROVIDERS: ATTEND Surgery | DX: E11.622 Type 2 diabetes mellitus with other skin ulcer (principal); E11.52 Type 2 diabetes mellitus with diabetic peripheral angiopathy with gangrene; E11.22 Type 2 diabetes mellitus with diabetic chronic kidney disease; L97.212 Non-pressure chronic ulcer of right calf with fat layer exposed; N18.6 End stage renal disease; I87.331 Chronic venous hypertension (idiopathic) with ulcer and inflammation of right lower extremity; I50.9 Heart failure, unspecified; E66.01 Morbid (severe) obesity due to excess calories; I70.261 Atherosclerosis of native arteries of extremities with gangrene, right leg | CPT/HCPCS: 11042 ==